=== PATIENT | male | born 2000 | race Two or more races ===

== ENCOUNTER 2024-04-12 05:15 | Emergency (ER) | payer OTHER ==
[~2024-04-12] VITALS: Ht 175.3 cm; Wt 140.0 kg
[2024-04-12] MEDS: IOHEXOL 300 MG/ML 100ML BOTTLE IJ ONE (05:48)
[2024-04-12] MEDS ORDERED: MORPHINE SULFATE 4 MG/ML SYR/VIAL IV ONE (06:15)
[2024-04-12 06:47] LABS: Basophils # (auto) 0.1 10 ^3/uL (0-0.2); Basophils % (auto) 0.5 % (0.0-2.0); Eosinophils # (auto) 0.2 10 ^3/uL (0-0.8); Eosinophils % (auto) 1.5 % (0.0-7.0); Hematocrit 39.7 % (41.0-53.0); Hemoglobin 13.2 g/dL (13.5-17.5); Lymphocytes # (auto) 1.7 10 ^3/uL (0.4-5.4); Lymphocytes % (auto) 12.5 % (10.0-50.0); Mean Corpuscular Hemoglobin 26.6 pg (28.0-32.0); Mean Corpuscular Hgb Conc. 33.2 g/dL (32.0-36.0); Monocytes % (auto) 7.4 % (0.0-12.0); Neutrophils # (auto) 10.4 10 ^3/uL (1.6-8.6); Neutrophils % (auto) 78.1 % (37.0-80.0); Red Blood Cells 4.96 10^6/uL (4.5-5.90); Red Cell Distribution Width 15.3 % (11.8-14.3); White Blood Cell 13.3 10^3/uL (4.4-10.8)
[2024-04-12] MEDS: TETANUS IMMUNE GLOBULIN 250 UNIT/ML SYRG IM ONE (06:48)
[2024-04-12] MEDS: MORPHINE SULFATE 4 MG/ML SYR/VIAL IV ONE (06:49)
[2024-04-12] MEDS: ACETAMINOPHEN 325 MG TAB PO ONE (06:54)
[2024-04-12] MEDS: TETANUS-DIPTH-ACEL PERTUSSIS 0.5ML SYR Tdap IM ONE (06:55)
[2024-04-12 06:59] LABS: Alanine Aminotransferase 22 U/L (7-40); Alkaline Phosphatase 147 U/L (46-116); Anion Gap 6 (5-15); Aspartate Aminotransferase 17 U/L (13-40); BUN/Creatinine Ratio 18.3 (10.0-20.0); Blood Urea Nitrogen 13 mg/dL (9-23); Calcium 9.5 mg/dL (8.7-10.4); Carbon Dioxide 24 mmol/L (20-30); Chloride 106 mmol/L (98-107); Glucose 107 mg/dL (74-106); Potassium 4.3 mmol/L (3.5-5.1); Sodium 136 mmol/L (136-145)
[2024-04-12 07:00] LABS: Albumin 4.3 g/dL (3.2-4.8); Bilirubin, Total 0.5 mg/dL (0.2-1.0); Total Protein 7.7 g/dL (5.7-8.2)
[2024-04-12 08:03] LABS: INR 1.05 (0.9-1.15); Partial Thromboplastin Time 31.3 SEC (24.5-34.5); Prothrombin Time 11.1 sec (9.3-11.8)
[2024-04-12 11:54] VITALS: BP 129/99; PULSE 101; RESP 12; O2SAT 98
== END 2024-04-12 11:54 | disposition home or self-care (01) ==
LOC: EDBD 05:15 → ER 05:15
DX: S29.011A Strain of muscle and tendon of front wall of thorax, initial encounter (principal); S86.912A Strain of unspecified muscle(s) and tendon(s) at lower leg level, left leg, initial encounter; S00.91XA Abrasion of unspecified part of head, initial encounter; M54.2 Cervicalgia; V49.9XXA Car occupant (driver) (passenger) injured in unspecified traffic accident, initial encounter; Y93.89 Activity, other specified; Y92.89 Other specified places as the place of occurrence of the external cause; Y99.8 Other external cause status
CPT/HCPCS: 36415; 70450; 71045; 71260; 72125; 73552; 73562; 73590; 73610; 74177; 80053; 83036; 84484; 85025; 85610; 85730; 90471; 90715; 93005; 99285; Q9967